=== PATIENT | male | born 1970 | race Caucasian/White ===

== ENCOUNTER → 2017-01-11 | Outpatient (CLI) | payer OTHER | END | disposition home or self-care (01) | LOC: PETCFH 07:45 | PROVIDERS: ATTEND Otolaryngology | DX: R22.1 Localized swelling, mass and lump, neck (principal); K57.30 Diverticulosis of large intestine without perforation or abscess without bleeding | CPT/HCPCS: 78816; A9552 ==

== ENCOUNTER 2017-01-27 08:15 | Observation (INO) | payer OTHER ==
[~2017-01-27] VITALS: Ht 195.6 cm; Wt 141.3 kg
[2017-01-27] MEDS ORDERED: LACTATED RINGERS 1,000 ML IV SCH (08:58)
[2017-01-27 08:59] VITALS: BP 147/79
[2017-01-27] MEDS ORDERED: LIDOCAINE 1%, 2ML SQ PRN (09:00)
[2017-01-27] MEDS ORDERED: PLEASE ENTER HEIGHT AND WEIGHT MC SCH (09:30)
[2017-01-27] MEDS ORDERED: PLEASE ENTER ALLERGIES MC SCH ×2 (09:30)
[2017-01-27] MEDS ORDERED: MIDAZOLAM 1 MG/ML, 2ML ONE (09:34)
[2017-01-27] MEDS ORDERED: FENTANYL PF 100 MCG/2ML ONE ×4 (09:34→12:18)
[2017-01-27] MEDS ORDERED: ONDANSETRON 2MG/ML, 2ML ONE ×2 (09:35)
[2017-01-27] MEDS ORDERED: CEFAZOLIN 1,000 MG ONE ×2 (09:35)
[2017-01-27] MEDS ORDERED: DEXAMETHASONE 4 MG/ML, 1ML ONE ×2 (09:35)
[2017-01-27] MEDS ORDERED: PROPOFOL 10 MG/ML, 20ML ONE (09:35)
[2017-01-27] MEDS ORDERED: SUCCINYLCHOLINE 20 MG/ML, 10ML ONE (09:35)
[2017-01-27] MEDS ORDERED: ROCURONIUM 10 MG/ML ONE (09:35)
[2017-01-27] MEDS ORDERED: EPINEPHRINE 1 MG/ML, 1ML ONE (09:40)
[2017-01-27] MEDS ORDERED: LIDOCAINE/PF 1%, 30ML ONE (09:40)
[2017-01-27] MEDS ORDERED: NEO/BACI/POLY/HC OINT 15GM ONE (09:40)
[2017-01-27] MEDS ORDERED: LIDOCAINE GEL 2%, 5ML ONE (09:45)
[2017-01-27] MEDS ORDERED: PROMETHAZINE 25 MG/ML, 1ML IV PRN (10:30)
[2017-01-27] MEDS ORDERED: ACETAMINOPHEN 325 MG TABLET PO PRN (10:30)
[2017-01-27] MEDS ORDERED: MIDAZOLAM 1 MG/ML, 2ML IV PRN (10:30)
[2017-01-27] MEDS ORDERED: ALBUTEROL SULFATE 2.5 MG/3 ML NPPB PRN (10:30)
[2017-01-27] MEDS ORDERED: ONDANSETRON 2MG/ML, 2ML IVPush PRN ×2 (10:30→14:30)
[2017-01-27] MEDS ORDERED: MEPERIDINE/PF 25MG/0.5ML IVPush PRN (10:30)
[2017-01-27] MEDS ORDERED: LABETALOL 5MG/ML, 20ML IV PRN (10:30)
[2017-01-27] MEDS ORDERED: OXYcodone 5 MG/5 ML ORAL.SOL UDC PO PRN (10:30)
[2017-01-27] MEDS ORDERED: hydrALAzine 20 MG/ML, 1ML IV PRN (10:30)
[2017-01-27] MEDS: FENTANYL PF 100 MCG/2ML IV PRN ×3 (12:12→12:28)
[2017-01-27] MEDS ORDERED: HYDROmorphone 2 MG/ML, 1ML ONE (12:18)
[2017-01-27] MEDS: HYDROmorphone 1 MG/ML, 1ML IV PRN ×4 (12:19→12:51)
[2017-01-27 13:40] VITALS: BP 122/75
[2017-01-27] MEDS ORDERED: HYDROmorphone 1 MG/ML, 1ML ONE (13:53)
[2017-01-27] MEDS ORDERED: HYDROmorphone 2 MG/ML, 1ML IV PRN (14:30)
[2017-01-27] MEDS: LACTATED RINGERS 1,000 ML IV SCH ×2 (14:51→21:39)
[2017-01-27] MEDS: OXYcodone/APAP 5/325MG TABLET PO PRN ×2 (17:39→21:37)
[2017-01-27 18:23] VITALS: BP 129/76
[2017-01-28 00:20] VITALS: BP 112/64
[2017-01-28] MEDS: OXYcodone/APAP 5/325MG TABLET PO PRN ×2 (02:08→06:19)
[2017-01-28 04:33] VITALS: BP 110/67
[2017-01-28] MEDS: LACTATED RINGERS 1,000 ML IV SCH (04:48)
[2017-01-28 08:54] VITALS: BP 104/54
[2017-01-28] MEDS ORDERED: OXYC-307 PO (09:52)
[2017-01-28] MEDS ORDERED: CEPH-368 PO (09:53)
[2017-01-28] MEDS ORDERED: ONDA4TAB10 PO (09:54)
[2017-01-28] MEDS ORDERED: ALPR1TAB2 PO (09:55)
== END 2017-01-28 10:11 | disposition home or self-care (01) ==
LOC: OUT 08:15 → EDSTATUS 10:00 → 4NOR 14:03 → OUT 14:13 → 4NOR 14:14 → DCLOUNGE 01-28 09:49
PROVIDERS: ADMIT Otolaryngology; ATTEND Otolaryngology
DX: C43.4 Malignant melanoma of scalp and neck (principal); R22.1 Localized swelling, mass and lump, neck; R59.0 Localized enlarged lymph nodes
CPT/HCPCS: 38724; 88307; 96374; C1729; G0378; J0171; J0330; J0690; J1100; J1170; J2250; J2405; J2704; J3010; J3490; J7120; 88342; G0461

== ENCOUNTER → 2017-02-03 | Outpatient (CLI) | payer OTHER ==
[~2017-02-03] MED LIST: ALPR1TAB2 PO; CEPH-368 PO; GADOBUTROL 10 MMOL/10 ML PFS ONE; ONDA4TAB10 PO; OXYC-307 PO
== END ==
LOC: RAD 16:13
PROVIDERS: ATTEND Specialist
DX: J32.3 Chronic sphenoidal sinusitis (principal); J32.2 Chronic ethmoidal sinusitis; C43.4 Malignant melanoma of scalp and neck
CPT/HCPCS: 70553; A9585

== ENCOUNTER → 2017-03-03 | Outpatient (CLI) | payer OTHER ==
[~2017-03-03] MED LIST changes: -GADOBUTROL 10 MMOL/10 ML PFS ONE
== END | disposition home or self-care (01) ==
LOC: CFH 07:25
PROVIDERS: ATTEND Specialist
DX: K76.0 Fatty (change of) liver, not elsewhere classified (principal); N28.1 Cyst of kidney, acquired; C43.4 Malignant melanoma of scalp and neck
CPT/HCPCS: 76700

== ENCOUNTER → 2017-03-25 | Outpatient (CLI) | payer OTHER | LOC: CFH 09:16 | PROVIDERS: ATTEND Specialist | DX: J34.89 Other specified disorders of nose and nasal sinuses (principal); C43.4 Malignant melanoma of scalp and neck | CPT/HCPCS: 70486 ==

== ENCOUNTER 2017-04-30 09:40 | Emergency (ER) | payer OTHER ==
[~2017-04-30] VITALS: Ht 195.6 cm; Wt 142.2 kg
[2017-04-30] MEDS ORDERED: DILTIAZEM 125 MG in DEXTROSE 5% 100 ML IV SCH (09:59)
[2017-04-30] MEDS ORDERED: ASPIRIN 81 MG TABLET CHEW PO ONE (10:00)
[2017-04-30] MEDS ORDERED: DILTIAZEM 5 MG/ML, 5ML IV ONE (10:00)
[2017-04-30] MEDS ORDERED: SODIUM CHLORIDE FLUSH 10ML SYR IVF ONE (10:00)
[2017-04-30] MEDS ORDERED: DILTIAZEM 5 MG/ML, 5ML ONE (10:07)
[2017-04-30] MEDS ORDERED: ASPIRIN 81 MG TABLET CHEW ONE (10:08)
[2017-04-30] MEDS ORDERED: ETOMIDATE 20 MG/10 ML ONE (10:30)
[2017-04-30] MEDS ORDERED: FENTANYL PF 100 MCG/2ML ONE (10:47)
[2017-04-30 10:50] LABS: BASOPHILS # (AUTO) 0.07 x10^3/uL (0-0.1); BASOPHILS % (AUTO) 1 % (0-1); EOSINOPHILS # (AUTO) 0.14 x10^3/uL (0-0.4); EOSINOPHILS % (AUTO) 2 % (1-7); LYMPHOCYTES # (AUTO) 2.45 x10^3/uL (1-3.4); LYMPHOCYTES % (AUTO) 27 % (22-44); MD NO; MEAN CORPUSCULAR HEMOGLOBIN 30.6 pg (27.5-34.5); MEAN CORPUSCULAR HGB CONC 33.8 g/dL (33.2-36.2); MEAN CORPUSCULAR VOLUME 90.4 fL (81-97); MEAN PLATELET VOLUME 7.9 fL (7.4-10.4); MONOCYTES # (AUTO) 0.74 x10^3/uL (0.2-0.8); MONOCYTES % (AUTO) 8 % (2-9); NEUTROPHILS # (AUTO) 5.55 x10^3/uL (1.8-6.8); NEUTROPHILS % (AUTO) 62 % (42-75); PLATELET COUNT 329 x10^3/uL (130-400); RED BLOOD COUNT 4.63 x10^6/uL (4.38-5.82)
[2017-04-30 10:59] LABS: ANION GAP 7 mmol/L (5-15); CALCIUM 8.8 mg/dL (8.5-10.1); CHLORIDE 105 mmol/L (98-107); CREATININE 0.85 mg/dL (0.7-1.3)
[2017-04-30] MEDS ORDERED: FENTANYL PF 100 MCG/2ML IV ONE (11:00)
[2017-04-30 11:02] LABS: TROPONIN I < 0.015 ng/mL (0.000-0.045)
[2017-04-30 11:22] VITALS: BP 119/74
[2017-04-30] MEDS ORDERED: ETOMIDATE 20 MG/10 ML IVPush ONE (11:30)
== END 2017-04-30 12:04 | disposition home or self-care (01) ==
LOC: ED 11:38
DX: I48.91 Unspecified atrial fibrillation (principal)
CPT/HCPCS: 36415; 71045; 80048; 82040; 83880; 84484; 85025; 92960; 93005; 96374

== ENCOUNTER → 2017-05-13 | Outpatient (CLI) | payer OTHER ==
[~2017-05-13] MED LIST changes: +METO25TA91 PO; +NIVO100V IV; +RIVA1TAB PO
== END | disposition home or self-care (01) ==
LOC: CFH 15:53
PROVIDERS: ATTEND Specialist
DX: I10 Essential (primary) hypertension (principal); I48.91 Unspecified atrial fibrillation; I48.92 Unspecified atrial flutter; C43.4 Malignant melanoma of scalp and neck; F17.200 Nicotine dependence, unspecified, uncomplicated; Z79.01 Long term (current) use of anticoagulants
CPT/HCPCS: 93306

== ENCOUNTER → 2017-06-04 | Outpatient (CLI) | payer OTHER ==
[~2017-06-04] MED LIST changes: +OMNIPAQUE 350 MG/ML, 100ML BOTTLE ONE
== END | disposition home or self-care (01) ==
LOC: RAD 10:36
PROVIDERS: ATTEND Specialist
DX: R91.1 Solitary pulmonary nodule (principal); Z85.820 Personal history of malignant melanoma of skin
CPT/HCPCS: 71275; Q9967

== ENCOUNTER 2017-06-08 11:53 | Emergency (ER) | payer OTHER ==
[~2017-06-08] VITALS: Ht 195.6 cm; Wt 141.0 kg
[~2017-06-08 11:53] MED LIST changes: -OMNIPAQUE 350 MG/ML, 100ML BOTTLE ONE
[2017-06-08 13:29] LABS: BASOPHILS # (AUTO) 0.03 x10^3/uL (0-0.1); BASOPHILS % (AUTO) 1 % (0-1); EOSINOPHILS # (AUTO) 0.38 x10^3/uL (0-0.4); EOSINOPHILS % (AUTO) 5 % (1-7); LYMPHOCYTES # (AUTO) 1.61 x10^3/uL (1-3.4); LYMPHOCYTES % (AUTO) 21 % (22-44); MD NO; MEAN CORPUSCULAR HEMOGLOBIN 30.4 pg (27.5-34.5); MEAN CORPUSCULAR HGB CONC 34.3 g/dL (33.2-36.2); MEAN CORPUSCULAR VOLUME 88.6 fL (81-97); MEAN PLATELET VOLUME 7.9 fL (7.4-10.4); MONOCYTES # (AUTO) 0.72 x10^3/uL (0.2-0.8); MONOCYTES % (AUTO) 9 % (2-9); NEUTROPHILS # (AUTO) 5.06 x10^3/uL (1.8-6.8); NEUTROPHILS % (AUTO) 65 % (42-75); PLATELET COUNT 261 x10^3/uL (130-400); RED BLOOD COUNT 5.25 x10^6/uL (4.38-5.82); RED CELL DISTRIBUTION WIDTH 13.7 % (9.4-14.8)
[2017-06-08 13:40] LABS: ALANINE AMINOTRANSFERASE 54 U/L (12-78); ALBUMIN 4.3 g/dL (3.4-5.0); ANION GAP 9 mmol/L (5-15); CALCIUM 9.2 mg/dL (8.5-10.1); CHLORIDE 105 mmol/L (98-107); CREATININE 0.79 mg/dL (0.7-1.3)
[2017-06-08 13:44] LABS: MICROSCOPIC NOT IND
[2017-06-08 13:45] LABS: ALKALINE PHOSPHATASE 100 U/L (45-117); BILIRUBIN,TOTAL 0.5 mg/dL (0.2-1.0); TOTAL PROTEIN 7.8 g/dL (6.4-8.2)
[2017-06-08 13:57] LABS: CULTURE INDICATED? NO
[2017-06-08 15:37] VITALS: BP 111/73
== END 2017-06-08 15:40 | disposition home or self-care (01) ==
LOC: ED 13:42
DX: J02.8 Acute pharyngitis due to other specified organisms (principal); B97.89 Other viral agents as the cause of diseases classified elsewhere; I48.91 Unspecified atrial fibrillation; Z87.891 Personal history of nicotine dependence
CPT/HCPCS: 36415; 71046; 80053; 81003; 82533; 83605; 83880; 84145; 85025; 87040; 87081; 87880; 99285

== ENCOUNTER → 2017-08-20 | Outpatient (CLI) | payer OTHER ==
[~2017-08-20] MED LIST changes: +GADOBUTROL 10 MMOL/10 ML VIAL ONE
== END | disposition home or self-care (01) ==
LOC: CFH 13:46
PROVIDERS: ATTEND Specialist
DX: C76.0 Malignant neoplasm of head, face and neck (principal); C43.9 Malignant melanoma of skin, unspecified; E23.6 Other disorders of pituitary gland; R42 Dizziness and giddiness; H53.8 Other visual disturbances
CPT/HCPCS: 70553; A9585

== ENCOUNTER → 2017-09-24 | Outpatient (CLI) | payer OTHER ==
[~2017-09-24] MED LIST changes: -GADOBUTROL 10 MMOL/10 ML VIAL ONE
== END | disposition home or self-care (01) ==
LOC: PETCFH 12:47
PROVIDERS: ATTEND Specialist
DX: C43.4 Malignant melanoma of scalp and neck (principal); R91.1 Solitary pulmonary nodule
CPT/HCPCS: 78816; A9552

== ENCOUNTER 2017-12-20 05:44 | Emergency (ER) | payer OTHER ==
[~2017-12-20] VITALS: Ht 195.6 cm; Wt 138.3 kg
[2017-12-20] MEDS ORDERED: SODIUM CHLORIDE 0.9% 1,000 ML IV ONE (06:06)
[2017-12-20 06:25] LABS: BASOPHILS % (AUTO) 2 % (0-1); EOSINOPHILS # (AUTO) 0.31 x10^3/uL (0-0.4); EOSINOPHILS % (AUTO) 5 % (1-7); LYMPHOCYTES # (AUTO) 1.82 x10^3/uL (1-3.4); LYMPHOCYTES % (AUTO) 30 % (22-44); MD NO; MEAN CORPUSCULAR HEMOGLOBIN 29.9 pg (27.5-34.5); MEAN CORPUSCULAR HGB CONC 33.4 g/dL (33.2-36.2); MEAN CORPUSCULAR VOLUME 89.6 fL (81-97); MEAN PLATELET VOLUME 8.3 fL (7.4-10.4); MONOCYTES # (AUTO) 0.81 x10^3/uL (0.2-0.8); MONOCYTES % (AUTO) 14 % (2-9); NEUTROPHILS # (AUTO) 2.97 x10^3/uL (1.8-6.8); NEUTROPHILS % (AUTO) 49 % (42-75); PLATELET COUNT 267 x10^3/uL (130-400); RED BLOOD COUNT 5.39 x10^6/uL (4.38-5.82)
[2017-12-20] MEDS ORDERED: ASPIRIN 81 MG TABLET CHEW ONE (06:29)
[2017-12-20] MEDS ORDERED: SODIUM CHLORIDE 0.9% 1,000ML IVBOLUS ONE (06:30)
[2017-12-20] MEDS ORDERED: ASPIRIN 81 MG TABLET CHEW PO ONE (06:30)
[2017-12-20 06:38] LABS: ALBUMIN 3.6 g/dL (3.4-5.0); ANION GAP 6 mmol/L (5-15); CALCIUM 9.1 mg/dL (8.5-10.1); CHLORIDE 107 mmol/L (98-107); CREATININE 1.01 mg/dL (0.7-1.3)
[2017-12-20 06:42] LABS: TROPONIN I < 0.015 ng/mL (0.000-0.045)
[2017-12-20] MEDS ORDERED: HYDR-3307 PO (06:42)
[2017-12-20] MEDS ORDERED: LEVO13CA2 PO (06:42)
[2017-12-20] MEDS ORDERED: RIZA10TA20 PO (06:42)
[2017-12-20] MEDS ORDERED: PROP20TA PO (06:42)
[2017-12-20] MEDS ORDERED: OMNIPAQUE 350 MG/ML, 100ML BOTTLE ONE (06:58)
[2017-12-20] MEDS ORDERED: ONDANSETRON ODT 4 MG PO ONE (07:00)
[2017-12-20] MEDS ORDERED: MORPHINE SULFATE 4 MG/ML, 1ML IVPush PRN (07:00)
[2017-12-20] MEDS ORDERED: TESTOSTERONE IM/IV (07:06)
[2017-12-20] MEDS ORDERED: ONDANSETRON ODT 4 MG ONE (07:08)
[2017-12-20] MEDS ORDERED: MORPHINE SULFATE 4 MG/ML, 1ML ONE (07:09)
[2017-12-20 08:02] VITALS: BP 109/65
== END 2017-12-20 08:07 | disposition home or self-care (01) ==
LOC: ED 06:36
DX: R06.00 Dyspnea, unspecified (principal); K52.9 Noninfective gastroenteritis and colitis, unspecified; I48.91 Unspecified atrial fibrillation
CPT/HCPCS: 36415; 71045; 71275; 80048; 82040; 84484; 85025; 93005; 96361; 96374; 99285; J7030; Q0162; Q9967

== ENCOUNTER 2018-01-12 03:01 | Emergency (ER) | payer OTHER ==
[~2018-01-12] VITALS: Ht 195.6 cm; Wt 128.0 kg
[~2018-01-12 03:01] MED LIST changes: +HYDR-3307 PO; +LEVO13CA2 PO; +PROP20TA PO; +RIZA10TA20 PO; +TESTOSTERONE IM/IV
[2018-01-12] MEDS ORDERED: DIAZEPAM 5 MG TABLET ONE (03:50)
[2018-01-12 04:00] LABS: BASOPHILS # (AUTO) 0.03 x10^3/uL (0-0.1); BASOPHILS % (AUTO) 1 % (0-1); EOSINOPHILS # (AUTO) 0.36 x10^3/uL (0-0.4); EOSINOPHILS % (AUTO) 7 % (1-7); LYMPHOCYTES # (AUTO) 1.76 x10^3/uL (1-3.4); LYMPHOCYTES % (AUTO) 36 % (22-44); MD NO; MEAN CORPUSCULAR HGB CONC 33.1 g/dL (33.2-36.2); MEAN CORPUSCULAR VOLUME 87.8 fL (81-97); MONOCYTES # (AUTO) 0.79 x10^3/uL (0.2-0.8); MONOCYTES % (AUTO) 16 % (2-9); NEUTROPHILS # (AUTO) 2.02 x10^3/uL (1.8-6.8); NEUTROPHILS % (AUTO) 41 % (42-75); PLATELET COUNT 252 x10^3/uL (130-400); RED BLOOD COUNT 5.02 x10^6/uL (4.38-5.82); RED CELL DISTRIBUTION WIDTH 13.9 % (9.4-14.8)
[2018-01-12] MEDS ORDERED: DIAZEPAM 5 MG TABLET PO ONE (04:00)
[2018-01-12] MEDS ORDERED: SODIUM CHLORIDE FLUSH 10ML SYR IVF ONE (04:00)
[2018-01-12 04:12] LABS: ALBUMIN 3.6 g/dL (3.4-5.0); ANION GAP 6 mmol/L (5-15); CALCIUM 9.1 mg/dL (8.5-10.1); CHLORIDE 106 mmol/L (98-107)
[2018-01-12 04:13] LABS: CREATININE 0.89 mg/dL (0.7-1.3)
[2018-01-12] MEDS ORDERED: HYDROmorphone 2 MG/ML, 1ML ONE (04:57)
[2018-01-12] MEDS ORDERED: HYDROmorphone 2 MG/ML, 1ML IV ONE (05:00)
[2018-01-12] MEDS ORDERED: HYDROmorphone 1 MG/ML, 1ML IV ONE (05:00)
[2018-01-12 05:35] VITALS: BP 109/61
[2018-01-12] MEDS ORDERED: OMNIPAQUE 350 MG/ML, 100ML BOTTLE ONE (06:39)
== END 2018-01-12 05:44 | disposition home or self-care (01) ==
LOC: ED 03:32
DX: M54.6 Pain in thoracic spine (principal)
CPT/HCPCS: 36415; 72129; 80048; 82040; 85025; 96374; 99285; J1170; Q9967

== ENCOUNTER 2018-01-16 12:18 | Emergency (ER) | payer OTHER ==
[~2018-01-16] VITALS: Ht 195.6 cm; Wt 128.0 kg
[2018-01-16] MEDS ORDERED: ONDANSETRON 2MG/ML, 2ML IVPush ONE (13:30)
[2018-01-16] MEDS ORDERED: SODIUM CHLORIDE 0.9% 1,000ML IVBOLUS ONE (13:30)
[2018-01-16] MEDS ORDERED: SODIUM CHLORIDE FLUSH 10ML SYR IVF ONE (13:30)
[2018-01-16] MEDS ORDERED: ONDANSETRON 2MG/ML, 2ML ONE (13:40)
[2018-01-16 14:19] LABS: BASOPHILS # (AUTO) 0.02 x10^3/uL (0-0.1); BASOPHILS % (AUTO) 0 % (0-1); EOSINOPHILS # (AUTO) 0.32 x10^3/uL (0-0.4); EOSINOPHILS % (AUTO) 6 % (1-7); LYMPHOCYTES # (AUTO) 1.64 x10^3/uL (1-3.4); LYMPHOCYTES % (AUTO) 30 % (22-44); MD NO; MEAN CORPUSCULAR HGB CONC 33.9 g/dL (33.2-36.2); MEAN CORPUSCULAR VOLUME 88.7 fL (81-97); MEAN PLATELET VOLUME 8.3 fL (7.4-10.4); MONOCYTES % (AUTO) 14 % (2-9); NEUTROPHILS # (AUTO) 2.78 x10^3/uL (1.8-6.8); NEUTROPHILS % (AUTO) 50 % (42-75); PLATELET COUNT 227 x10^3/uL (130-400); RED BLOOD COUNT 5.51 x10^6/uL (4.38-5.82); RED CELL DISTRIBUTION WIDTH 14.2 % (9.4-14.8)
[2018-01-16 14:28] LABS: ALANINE AMINOTRANSFERASE 32 U/L (12-78); ALBUMIN 3.9 g/dL (3.4-5.0); ANION GAP 11 mmol/L (5-15); CALCIUM 9.4 mg/dL (8.5-10.1); CHLORIDE 102 mmol/L (98-107)
[2018-01-16 14:33] LABS: ALKALINE PHOSPHATASE 54 U/L (45-117); BILIRUBIN,TOTAL 0.8 mg/dL (0.2-1.0); TOTAL PROTEIN 7.3 g/dL (6.4-8.2); TROPONIN I < 0.015 ng/mL (0.000-0.045)
[2018-01-16 15:31] VITALS: BP 125/78
[2018-01-16 15:35] LABS: FREE T4 (FREE THYROXINE) 0.46 ng/dL (0.76-1.46); THYROID STIMULATING HORMONE 34.1 mIU/L (0.358-3.740)
== END 2018-01-16 16:35 | disposition home or self-care (01) ==
LOC: ED 16:30
DX: E03.9 Hypothyroidism, unspecified (principal); I48.91 Unspecified atrial fibrillation
CPT/HCPCS: 36415; 71046; 80053; 84439; 84443; 84484; 85025; 93005; 96374; 99285; J2405; J7030

== ENCOUNTER → 2018-01-20 | Outpatient (CLI) | payer OTHER | END | disposition home or self-care (01) | LOC: PETCFH 08:25 | PROVIDERS: ATTEND Specialist | DX: R91.1 Solitary pulmonary nodule (principal); C43.4 Malignant melanoma of scalp and neck | CPT/HCPCS: 78816; A9552 ==

== ENCOUNTER 2018-05-14 07:14 | Emergency (ER) | payer OTHER, MEDICAID ==
[~2018-05-14] VITALS: Ht 195.6 cm; Wt 138.2 kg
--- NOTE | 2018-05-14 07:24 | NUR ---
PT REFUSED WC
--- NOTE | 2018-05-14 07:55 | NUR ---
PT. IS A & O X 4 WITH C/O NOT FEELING WELL AND DANIELS PAIN. 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 PT. 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 PT. IS PINK, WARM AND DRY. LUNGS ARE CTA. MM ARE MOIST. PULSES +2 THROUGHOUT. PT. HAS THE CALL LIGHT IN PLACE.
[2018-05-14 08:05] LABS: BASOPHILS # (AUTO) 0.04 x10^3/uL (0-0.1); BASOPHILS % (AUTO) 1 % (0-1); EOSINOPHILS # (AUTO) 0.22 x10^3/uL (0-0.4); EOSINOPHILS % (AUTO) 6 % (1-7); LYMPHOCYTES # (AUTO) 1.82 x10^3/uL (1-3.4); LYMPHOCYTES % (AUTO) 45 % (22-44); MD NO; MEAN CORPUSCULAR HEMOGLOBIN 30.2 pg (27.5-34.5); MEAN CORPUSCULAR HGB CONC 33.7 g/dL (33.2-36.2); MEAN CORPUSCULAR VOLUME 89.8 fL (81-97); MEAN PLATELET VOLUME 7.2 fL (7.4-10.4); MONOCYTES # (AUTO) 0.51 x10^3/uL (0.2-0.8); MONOCYTES % (AUTO) 13 % (2-9); NEUTROPHILS # (AUTO) 1.42 x10^3/uL (1.8-6.8); NEUTROPHILS % (AUTO) 36 % (42-75); PLATELET COUNT 217 x10^3/uL (130-400); RED BLOOD COUNT 4.34 x10^6/uL (4.38-5.82); RED CELL DISTRIBUTION WIDTH 15.3 % (9.4-14.8)
[2018-05-14 08:17] LABS: ANION GAP 5 mmol/L (5-15); CALCIUM 8.4 mg/dL (8.5-10.1); CHLORIDE 108 mmol/L (98-107); CREATININE 0.82 mg/dL (0.7-1.3)
[2018-05-14 08:26] LABS: T4 (THYROXINE) 8.5 mcg/dL (4.5-12.1)
--- NOTE | 2018-05-14 09:25 | NUR ---
PT. IS RESTING WITHOUT CONCERNS. VSS. PT. REMAINS MONITORED.
[2018-05-14] MEDS ORDERED: HYDROCORTISONE 100 MG INJ. IVPush ONE (11:00)
[2018-05-14] MEDS ORDERED: SODIUM CHLORIDE FLUSH 10ML SYR IVF ONE (11:00)
[2018-05-14] MEDS ORDERED: RIZATRIPTAN 10MG TABLET PO PRN (12:00)
--- NOTE | 2018-05-14 12:05 | NUR ---
PT. REMAINS MONITORED WITH STABLE VITALS. PT. WAS MEDICATED ORDERED. PT. IS DRINKING PO FLUIDS.
--- NOTE | 2018-05-14 13:08 | NUR ---
PT. WAS GIVEN DISCHARGE INSTRUCTIONS AND SCRIPTS WITH UNDERSTANDING VERBALIZED ALONG WITH WILLINGNESS TO COMPLY. PT.'S IV WAS DCD', CATH TIP INTACT. PRESSURE HELD WITH HEMOSTASIS ACHIEVED. PT. WAS AMBULATORY WITH A STEADY GAIT TO THE DISCHARGE DESK.
[2018-05-14 13:10] VITALS: BP 115/75
== END 2018-05-14 13:13 | disposition home or self-care (01) ==
LOC: ED 09:16
DX: E27.1 Primary adrenocortical insufficiency (principal); E03.9 Hypothyroidism, unspecified; I48.91 Unspecified atrial fibrillation; Z87.891 Personal history of nicotine dependence
CPT/HCPCS: 36415; 80048; 82040; 82533; 84436; 84443; 85025; 93005; 96374; 99284; J1720

== ENCOUNTER 2018-10-19 15:34 | Inpatient (IN) | payer OTHER, MEDICAID ==
[~2018-10-19] VITALS: Ht 195.6 cm; Wt 140.0 kg
[~2018-10-19 15:34] MED LIST changes: -HYDR-3307 PO; +HYDR-36 PO
--- NOTE | 2018-10-19 16:21 | NUR ---
COUGH WITH FATIGUE AND CHILLS STARTED TWO WEEKS AGO
[2018-10-19] MEDS ORDERED: ALBUTEROL/IPRATROPIUM 2.5MG/0.5MG, 3 ML ONE (16:27)
[2018-10-19] MEDS ORDERED: ALBUTEROL/IPRATROPIUM 2.5MG/0.5MG, 3 ML NPPB ONE (16:30)
--- NOTE | 2018-10-19 16:30 | NUR ---
RT AT BEDSIDE
[2018-10-19 16:39] LABS: BASOPHILS # (AUTO) 0.04 x10^3/uL (0-0.1); BASOPHILS % (AUTO) 1 % (0-1); EOSINOPHILS # (AUTO) 0.33 x10^3/uL (0-0.4); EOSINOPHILS % (AUTO) 6 % (1-7); LYMPHOCYTES # (AUTO) 1.53 x10^3/uL (1-3.4); LYMPHOCYTES % (AUTO) 26 % (22-44); MD NO; MEAN CORPUSCULAR HEMOGLOBIN 31.2 pg (27.5-34.5); MEAN CORPUSCULAR HGB CONC 33.3 g/dL (33.2-36.2); MEAN CORPUSCULAR VOLUME 93.7 fL (81-97); MEAN PLATELET VOLUME 7.4 fL (7.4-10.4); MONOCYTES % (AUTO) 10 % (2-9); NEUTROPHILS # (AUTO) 3.35 x10^3/uL (1.8-6.8); NEUTROPHILS % (AUTO) 57 % (42-75); PLATELET COUNT 237 x10^3/uL (130-400); RED BLOOD COUNT 4.44 x10^6/uL (4.38-5.82); RED CELL DISTRIBUTION WIDTH 14.6 % (9.4-14.8)
[2018-10-19 16:50] LABS: ALANINE AMINOTRANSFERASE 32 U/L (12-78); ALBUMIN 3.9 g/dL (3.4-5.0); ANION GAP 4 mmol/L (5-15); CALCIUM 8.8 mg/dL (8.5-10.1); CHLORIDE 110 mmol/L (98-107); CREATININE 0.78 mg/dL (0.7-1.3)
[2018-10-19] MEDS ORDERED: BACL20TA PO (16:54)
[2018-10-19] MEDS ORDERED: PROP20TA PO (16:54)
[2018-10-19] MEDS ORDERED: LEVO137T3 PO (16:54)
[2018-10-19 16:55] LABS: ALKALINE PHOSPHATASE 70 U/L (45-117); TOTAL PROTEIN 7.1 g/dL (6.4-8.2); TROPONIN I < 0.015 ng/mL (0.000-0.045)
[2018-10-19] MEDS ORDERED: ALBU18HF INH (16:58)
[2018-10-19] MEDS ORDERED: HYDROCORTISONE (16:58)
--- NOTE | 2018-10-19 17:30 | NUR ---
COUGHING DECREASED SINCE BREATHING TX. AWAITING RE-EVAL
--- NOTE | 2018-10-19 18:45 | NUR ---
IV STARTED FOR CTA. CONTINUE TO MONITOR
[2018-10-19] MEDS ORDERED: HYDROCORTISONE 100 MG INJ. IVPush ONE (19:00)
--- NOTE | 2018-10-19 19:06 | NUR ---
REPORT TO MARICRUZ VALDIVIA
[2018-10-19] MEDS ORDERED: HYDROCORTISONE 100 MG INJ. ONE (19:11)
[2018-10-19] MEDS ORDERED: OMNIPAQUE 350 MG/ML, 100ML BOTTLE ONE (19:13)
--- NOTE | 2018-10-19 19:16 | NUR ---
Bedside report recieved, back from CT. at bedside. Medicated per MD orders w/ IV solucortef, vitals stable, waiting for results. Pt denies pain.
--- NOTE | 2018-10-19 20:04 | NUR ---
Report called to Sheri VALDIVIA. Pt to transfer to room 478, at bedside and updated of POC. Vitals remain stable, pain resolved. Meal tray ordered and not yet available.
[2018-10-19] MEDS ORDERED: BISACODYL 10 MG SUPP PR PRN (21:30)
[2018-10-19] MEDS ORDERED: ONDANSETRON ODT 4 MG PO PRN (21:30)
[2018-10-19] MEDS: PROPRANOLOL 20 MG TABLET PO SCH (21:30)
[2018-10-19] MEDS ORDERED: POLYETHYLENE GLYCOL 17 GM PACKET PO PRN (21:30)
[2018-10-19] MEDS ORDERED: ALBUTEROL SULFATE 2.5 MG/3 ML NPPB PRN (21:30)
[2018-10-19] MEDS ORDERED: ACETAMINOPHEN 325 MG TABLET PO PRN (21:30)
[2018-10-19] MEDS ORDERED: BACLOFEN 10 MG TABLET PO PRN (21:30)
[2018-10-19] MEDS ORDERED: PROPRANOLOL 40 MG TABLET ONE (21:47)
[2018-10-19] MEDS: HEPARIN 5,000 UNITS/ML, 1ML SQ SCH (21:50)
[2018-10-19] MEDS: SODIUM CHLORIDE FLUSH 10ML SYR IVF SCH (21:51)
[2018-10-19 22:28] LABS: HCT (SEDRATE) 41.6 % (39.2-51.8)
[2018-10-20 02:58] VITALS: BP 121/73
[2018-10-20 05:35] LABS: BASOPHILS # (AUTO) 0.07 x10^3/uL (0-0.1); BASOPHILS % (AUTO) 1 % (0-1); EOSINOPHILS # (AUTO) 0.37 x10^3/uL (0-0.4); EOSINOPHILS % (AUTO) 7 % (1-7); LYMPHOCYTES # (AUTO) 1.79 x10^3/uL (1-3.4); LYMPHOCYTES % (AUTO) 33 % (22-44); MD NO; MEAN CORPUSCULAR HEMOGLOBIN 30.4 pg (27.5-34.5); MEAN CORPUSCULAR HGB CONC 32.9 g/dL (33.2-36.2); MEAN CORPUSCULAR VOLUME 92.4 fL (81-97); MEAN PLATELET VOLUME 7.4 fL (7.4-10.4); MONOCYTES # (AUTO) 0.69 x10^3/uL (0.2-0.8); MONOCYTES % (AUTO) 13 % (2-9); NEUTROPHILS # (AUTO) 2.56 x10^3/uL (1.8-6.8); NEUTROPHILS % (AUTO) 47 % (42-75); PLATELET COUNT 224 x10^3/uL (130-400); RED BLOOD COUNT 4.33 x10^6/uL (4.38-5.82); RED CELL DISTRIBUTION WIDTH 14.4 % (9.4-14.8)
[2018-10-20 06:01] LABS: CHLORIDE 107 mmol/L (98-107)
[2018-10-20] MEDS: HEPARIN 5,000 UNITS/ML, 1ML SQ SCH ×3 (06:08→22:08)
[2018-10-20 06:09] LABS: ALANINE AMINOTRANSFERASE 30 U/L (12-78); ALBUMIN 3.6 g/dL (3.4-5.0); ALKALINE PHOSPHATASE 68 U/L (45-117); ANION GAP 7 mmol/L (5-15); BILIRUBIN,TOTAL 0.5 mg/dL (0.2-1.0); CALCIUM 8.9 mg/dL (8.5-10.1); CREATININE 0.77 mg/dL (0.7-1.3)
[2018-10-20] MEDS: LEVOTHYROXINE 137 MCG TABLET PO SCH (06:09)
[2018-10-20 08:12] VITALS: BP 126/79
[2018-10-20] MEDS ORDERED: PROPRANOLOL 40 MG TABLET ONE (08:23)
[2018-10-20] MEDS: PROPRANOLOL 20 MG TABLET PO SCH (08:37)
[2018-10-20] MEDS: SENNA/DOCUSATE TABLET PO SCH (08:39)
[2018-10-20] MEDS: SODIUM CHLORIDE FLUSH 10ML SYR IVF SCH ×2 (08:39→22:09)
[2018-10-20] MEDS ORDERED: HYDR-3059 PO ×2 (08:52)
[2018-10-20] MEDS ORDERED: BACL-19 PO (08:52)
[2018-10-20] MEDS ORDERED: PROP10TA16 PO (08:52)
[2018-10-20] MEDS ORDERED: DULO30CA2 PO (08:52)
[2018-10-20] MEDS ORDERED: AMOX1TAB12 PO (08:52)
[2018-10-20] MEDS ORDERED: ALPR0.5T7 PO (08:52)
[2018-10-20] MEDS ORDERED: BACLOFEN 10 MG TABLET PO PRN (09:00)
[2018-10-20] MEDS: PROPRANOLOL 10 MG TABLET PO SCH ×2 (09:46→22:09)
[2018-10-20] MEDS: DULOXETINE 30 MG CAPSULE.DR PO SCH (09:47)
[2018-10-20] MEDS: HYDROCORTISONE 10 MG TABLET PO SCH ×2 (09:47→22:09)
[2018-10-20] MEDS: HYDROcodone/APAP 10/325 MG TABLET PO PRN ×2 (09:49→15:21)
[2018-10-20 14:12] VITALS: BP 117/77
[2018-10-20] MEDS: ALBUTEROL SULFATE 2.5 MG/3 ML NPPB SCH ×2 (14:28→21:04)
[2018-10-20] MEDS: GUAIFENESIN/DM 200-20MG, 10ML UDC PO PRN (15:20)
[2018-10-20] MEDS: methylPREDNISolone SOD SUCC 125 MG/2 ML IVPush SCH ×2 (15:21→22:08)
[2018-10-20] MEDS: RIZATRIPTAN 10MG TABLET PO PRN (15:47)
[2018-10-20 19:38] VITALS: BP 122/78
[2018-10-20] MEDS ORDERED: DIPHENHYDRAMINE 50 MG CAPSULE PO ONE (21:00)
[2018-10-21 02:20] VITALS: BP 127/79
[2018-10-21] MEDS: methylPREDNISolone SOD SUCC 125 MG/2 ML IVPush SCH ×4 (03:31→21:03)
[2018-10-21] MEDS: LEVOTHYROXINE 137 MCG TABLET PO SCH (06:33)
[2018-10-21] MEDS: HEPARIN 5,000 UNITS/ML, 1ML SQ SCH ×3 (06:33→21:04)
[2018-10-21] MEDS: RIZATRIPTAN 10MG TABLET PO PRN ×2 (06:37→14:31)
[2018-10-21 07:57] VITALS: BP 133/88
[2018-10-21] MEDS: SODIUM CHLORIDE FLUSH 10ML SYR IVF SCH ×2 (08:50→21:04)
[2018-10-21] MEDS: HYDROCORTISONE 10 MG TABLET PO SCH ×2 (08:52→21:03)
[2018-10-21] MEDS: DULOXETINE 30 MG CAPSULE.DR PO SCH (08:53)
[2018-10-21] MEDS: PROPRANOLOL 10 MG TABLET PO SCH ×2 (08:53→21:04)
[2018-10-21] MEDS: HYDROcodone/APAP 10/325 MG TABLET PO PRN ×2 (08:53→16:07)
[2018-10-21] MEDS: SENNA/DOCUSATE TABLET PO SCH ×2 (08:54→21:34)
[2018-10-21] MEDS: ALBUTEROL SULFATE 2.5 MG/3 ML NPPB SCH ×3 (09:17→20:52)
[2018-10-21] MEDS ORDERED: TEST200V3 IM (11:52)
[2018-10-21] MEDS ORDERED: TESTOSTERONE CYPIONATE 200 MG/ML IM ONE ×2 (13:00→13:30)
[2018-10-21 14:16] VITALS: BP 129/80
[2018-10-21 18:35] VITALS: BP 103/76
[2018-10-21] MEDS: GUAIFENESIN/DM 200-20MG, 10ML UDC PO PRN (21:13)
[2018-10-21] MEDS ORDERED: DIPHENHYDRAMINE 50 MG CAPSULE PO PRN (21:30)
[2018-10-22] MEDS: methylPREDNISolone SOD SUCC 125 MG/2 ML IVPush SCH ×2 (03:02→09:06)
[2018-10-22 04:15] VITALS: BP 122/66
[2018-10-22] MEDS: HEPARIN 5,000 UNITS/ML, 1ML SQ SCH (06:37)
[2018-10-22] MEDS: LEVOTHYROXINE 137 MCG TABLET PO SCH (06:38)
[2018-10-22] MEDS: ALBUTEROL SULFATE 2.5 MG/3 ML NPPB SCH (07:25)
[2018-10-22] MEDS ORDERED: ALBU2.5V NPPB (08:22)
[2018-10-22] MEDS ORDERED: METH4TAB2 PO (08:22)
[2018-10-22 08:55] VITALS: BP 137/81
[2018-10-22] MEDS: SODIUM CHLORIDE FLUSH 10ML SYR IVF SCH (09:06)
[2018-10-22] MEDS: DULOXETINE 30 MG CAPSULE.DR PO SCH (09:08)
[2018-10-22] MEDS: HYDROCORTISONE 10 MG TABLET PO SCH (09:08)
[2018-10-22] MEDS: PROPRANOLOL 10 MG TABLET PO SCH (09:09)
[2018-10-22] MEDS: HYDROcodone/APAP 10/325 MG TABLET PO PRN (09:14)
[2018-10-22 12:02] VITALS: BP 130/78
== END 2018-10-22 12:45 | disposition home or self-care (01) | DRG 189 ==
LOC: ED 17:32 → EDIP 19:41 → 4NOR 20:13 → DCLOUNGE 10-22 12:34
PROVIDERS: ADMIT Family Medicine; ATTEND Family Medicine
DX: J96.01 Acute respiratory failure with hypoxia (principal); J45.901 Unspecified asthma with (acute) exacerbation; D68.69 Other thrombophilia; E27.1 Primary adrenocortical insufficiency; E03.9 Hypothyroidism, unspecified; I48.91 Unspecified atrial fibrillation; Z83.3 Family history of diabetes mellitus; Z85.820 Personal history of malignant melanoma of skin; Z87.09 Personal history of other diseases of the respiratory system; Z87.891 Personal history of nicotine dependence; Z91.030 Bee allergy status
CPT/HCPCS: 36415; 84145; 99285; J7613; J7620; 71045; 71275; 80053; 83880; 84484; 85025; 85651; 93005; 94640; 96374; G0378; J1644; Q9967; J1720; J2930

== ENCOUNTER 2019-02-20 14:53 | Outpatient (CLI) | payer OTHER, MEDICAID ==
[~2019-02-20 14:53] MED LIST changes: +ALBU18HF INH; +ALBU2.5V NPPB; +ALPR0.5T7 PO; +AMOX1TAB12 PO; +BACL-19 PO; +BACL20TA PO; +DULO30CA2 PO; +HYDR-3059 PO; +HYDROCORTISONE; +LEVO137T3 PO; +METH4TAB2 PO; +PROP10TA16 PO; +TEST200V3 IM
== END 2019-02-20 23:59 | disposition home or self-care (01) ==
LOC: CARD 14:53
PROVIDERS: ATTEND Internal Medicine
DX: J45.909 Unspecified asthma, uncomplicated (principal); G47.33 Obstructive sleep apnea (adult) (pediatric); E27.1 Primary adrenocortical insufficiency; E03.9 Hypothyroidism, unspecified; Z87.891 Personal history of nicotine dependence; Z85.828 Personal history of other malignant neoplasm of skin
CPT/HCPCS: 94060; 94726; 94729

== ENCOUNTER 2019-05-04 12:54 | Emergency (ER) | payer BC, MEDICAID, OTHER ==
[~2019-05-04] VITALS: Ht 195.6 cm; Wt 149.0 kg
[2019-05-04 13:37] LABS: BASOPHILS # (AUTO) 0.03 x10^3/uL (0-0.1); BASOPHILS % (AUTO) 0 % (0-1); EOSINOPHILS # (AUTO) 0.03 x10^3/uL (0-0.4); EOSINOPHILS % (AUTO) 0 % (1-7); LYMPHOCYTES # (AUTO) 1.38 x10^3/uL (1-3.4); LYMPHOCYTES % (AUTO) 12 % (22-44); MD NO; MEAN CORPUSCULAR HEMOGLOBIN 29.6 pg (27.5-34.5); MEAN CORPUSCULAR HGB CONC 33.3 g/dL (33.2-36.2); MEAN PLATELET VOLUME 8.5 fL (7.4-10.4); MONOCYTES # (AUTO) 0.46 x10^3/uL (0.2-0.8); MONOCYTES % (AUTO) 4 % (2-9); NEUTROPHILS # (AUTO) 9.65 x10^3/uL (1.8-6.8); NEUTROPHILS % (AUTO) 84 % (42-75); PLATELET COUNT 284 x10^3/uL (130-400); RED BLOOD COUNT 6.29 x10^6/uL (4.38-5.82); RED CELL DISTRIBUTION WIDTH 17.1 % (9.4-14.8)
[2019-05-04 13:49] LABS: ALANINE AMINOTRANSFERASE 67 U/L (12-78); ALBUMIN 4.2 g/dL (3.4-5.0); ANION GAP 5 mmol/L (5-15); CALCIUM 9.5 mg/dL (8.5-10.1); CHLORIDE 102 mmol/L (98-107); CREATININE 1.32 mg/dL (0.7-1.3)
[2019-05-04] MEDS ORDERED: PROP20TA PO (13:50)
[2019-05-04] MEDS ORDERED: DULO60CA7 PO (13:51)
[2019-05-04 13:53] LABS: ALKALINE PHOSPHATASE 70 U/L (45-117); BILIRUBIN,TOTAL 0.8 mg/dL (0.2-1.0); TROPONIN I < 0.015 ng/mL (0.000-0.045)
[2019-05-04] MEDS ORDERED: LEVO150T5 PO (13:53)
[2019-05-04] MEDS ORDERED: testosterone (13:53)
[2019-05-04] MEDS ORDERED: PRED20TA PO (13:54)
--- NOTE | 2019-05-04 13:54 | NUR ---
Assumed care of patient from SHEA Mascorro. at bedside. secured entrance monitor on. vs stable. will continue to monitor.
[2019-05-04] MEDS ORDERED: MORPHINE SULFATE 4 MG/ML, 1ML ONE (14:03)
--- NOTE | 2019-05-04 14:10 | NUR ---
PT SET UP FOR CARDIOVERSION.
[2019-05-04] MEDS ORDERED: ETOMIDATE 20 MG/10 ML ONE (14:20)
[2019-05-04] MEDS ORDERED: FENTANYL PF 100 MCG/2ML ONE (14:30)
[2019-05-04] MEDS ORDERED: MORPHINE SULFATE 4 MG/ML, 1ML IVPush ONE (14:30)
[2019-05-04] MEDS ORDERED: DILTIAZEM 5 MG/ML, 5ML IVPush ONE (14:30)
--- NOTE | 2019-05-04 14:44 | NUR ---
CARDIOVERSION NOW DOWN. AT BEDSIDE. PT TALKING WITH WITH . VS STABLE. PT IS IN NSR AT THIS TIME. CALL LIGHT IN PLACE. WILL CONTINUE TO MONITOR.
[2019-05-04] MEDS ORDERED: FENTANYL PF 100 MCG/2ML IVPush ONE (15:00)
[2019-05-04] MEDS ORDERED: ETOMIDATE 20 MG/10 ML IVPush ONE (15:00)
--- NOTE | 2019-05-04 15:09 | NUR ---
pt drinking water and visiting with . vs stable. no acute distress noted. pediatric anesthesiologist on. nsr noted. will continue to monitor.
--- NOTE | 2019-05-04 15:30 | NUR ---
PT REPORTS HE IS READY FOR DISCHARGE. PT IS A&O X4. PT WAS ABLE TO GET SELF DRESSED BY HIMSELF. PT IS ABLE TO SAFELY AMBULATE AROUND ROOM AND DOZIER. PT HAS A RIDE HOME FROM HIS . PT REPORTS HE IS READY FOR DISCHARGED. PT DISCHARGED BY DR ARREOLA.
[2019-05-04 15:51] VITALS: BP 123/94
== END 2019-05-04 15:56 | disposition home or self-care (01) ==
LOC: ED 15:30
DX: I48.20 Chronic atrial fibrillation, unspecified (principal); R00.0 Tachycardia, unspecified; J44.9 Chronic obstructive pulmonary disease, unspecified; E03.9 Hypothyroidism, unspecified
CPT/HCPCS: 36415; 71045; 80053; 83880; 84484; 85025; 92960; 93005; 96374; 96375; 99285; J2270; J3010

== ENCOUNTER 2019-05-23 10:48 | Emergency (ER) | payer BC ==
[~2019-05-23] VITALS: Ht 195.6 cm; Wt 154.2 kg
[~2019-05-23 10:48] MED LIST changes: +DULO60CA7 PO; +LEVO150T5 PO; +PRED20TA PO; +testosterone
[2019-05-23] MEDS ORDERED: SODIUM CHLORIDE FLUSH 10ML SYR IVF ONE (11:30)
[2019-05-23] MEDS ORDERED: MORPHINE SULFATE 4 MG/ML, 1ML ONE ×2 (11:31→11:59)
[2019-05-23] MEDS ORDERED: ONDANSETRON 2MG/ML, 2ML ONE (11:31)
[2019-05-23] MEDS ORDERED: DILTIAZEM 5 MG/ML, 5ML ONE (11:44)
[2019-05-23 11:49] LABS: BASOPHILS # (AUTO) 0.04 x10^3/uL (0-0.1); BASOPHILS % (AUTO) 0 % (0-1); EOSINOPHILS # (AUTO) 0.06 x10^3/uL (0-0.4); EOSINOPHILS % (AUTO) 1 % (1-7); LYMPHOCYTES # (AUTO) 1.35 x10^3/uL (1-3.4); LYMPHOCYTES % (AUTO) 14 % (22-44); MD NO; MEAN CORPUSCULAR HEMOGLOBIN 29.9 pg (27.5-34.5); MEAN CORPUSCULAR HGB CONC 32.9 g/dL (33.2-36.2); MEAN CORPUSCULAR VOLUME 90.7 fL (81-97); MEAN PLATELET VOLUME 7.6 fL (7.4-10.4); MONOCYTES # (AUTO) 0.77 x10^3/uL (0.2-0.8); MONOCYTES % (AUTO) 8 % (2-9); NEUTROPHILS # (AUTO) 7.21 x10^3/uL (1.8-6.8); NEUTROPHILS % (AUTO) 76 % (42-75); PLATELET COUNT 252 x10^3/uL (130-400); RED BLOOD COUNT 5.76 x10^6/uL (4.38-5.82); RED CELL DISTRIBUTION WIDTH 17.3 % (9.4-14.8)
[2019-05-23 11:57] LABS: ALBUMIN 3.7 g/dL (3.4-5.0); ANION GAP 6 mmol/L (5-15); CALCIUM 9.4 mg/dL (8.5-10.1); CHLORIDE 105 mmol/L (98-107)
[2019-05-23] MEDS ORDERED: DILTIAZEM 5 MG/ML, 5ML IVPush ONE (12:00)
[2019-05-23] MEDS ORDERED: MORPHINE SULFATE 4 MG/ML, 1ML IVPush ONE ×2 (12:00→13:00)
[2019-05-23 12:03] LABS: TROPONIN I 0.055 ng/mL (0.000-0.045)
[2019-05-23 12:08] LABS: INTERNATIONAL NORMALIZED RATIO 0.91 (0.93-1.1); PROTHROMBIN TIME 9.6 Seconds (9.6-11.5)
[2019-05-23] MEDS ORDERED: PROPOFOL 10 MG/ML, 20ML ONE (12:18)
--- NOTE | 2019-05-23 12:56 | NUR ---
cardioversion done at [address] side [address] castillo given 190mcg of propofol with 200J of shock pt's heart rhythm became SR vss stable dr laguerre at bed side for made pt breathe well 1240 pt is fully awake all vitral sign became back to base line at bed side for supporting pt edita rn at bed side given report
[2019-05-23] MEDS ORDERED: ONDANSETRON 2MG/ML, 2ML IVPush ONE (13:00)
--- NOTE | 2019-05-23 13:13 | NUR ---
RECEIVED BEDSIDE REPORT AND CARE FROM NICKIE RN. PT AWAKE, A&OX4. FOLLOWS COMMANDS, TALKATIVE AND LAUGHING WITH SPOUSE. VSS. PULSE OX 90-93% RA. SR ON MONITOR, RATE 70-75. DR. ARREOLA AT BEDSIDE DISCUSSING DISCHARGE POC AND MEDICATIONS WITH PT. PT REPORTS 8/10 NECK AND JAW PAIN, DR ARREOLA AWARE, DISCUSSING PAIN WITH PT, NO NEW ORDERS RECEIVED AT THIS TIME. PT AND AGREE TO POC. WILL CONTINUE TO MONITOR. CALL LIGHT IN REACH. FALL PRECAUTIONS IN PLACE. SIDE RAILS UPX2. CONT PULSE OX, BP, MARKET DEVELOPMENT EXECUTIVE AND DE-FIB PADS ALL REMAIN IN PLACE.
[2019-05-23] MEDS ORDERED: ASPI-496 PO (13:26)
[2019-05-23] MEDS ORDERED: ALPR0.5T7 PO (13:26)
--- NOTE | 2019-05-23 13:35 | NUR ---
PT RESTING COMFORTABLY. NSR ON MONITOR, RATE CONTROLLED 65-72. VSS. DENIES ANY CP, SOB, PALPITATIONS. DENIES URGE TO USE RESTROOM. SPOUSE AT BEDSIDE. CALL LIGHT IN REACH. WILL CONTINUE TO MONITOR. AWAITING DISCHARGE RX AND PAPERS FROM ERP. FALL PRECAUTIONS IN PLACE. A&OX4, FOLLOWING COMMANDS.
--- NOTE | 2019-05-23 13:50 | NUR ---
PT PROVIDED WATER AND PUDDING PER REQUEST AND DR. ELBA STOKES, TOLERATING PO WELL, EATING WITHOUT ANY DIFFICULTY. VSS. NSR ON MONITOR. CALL LIGHT IN REACH.
[2019-05-23] MEDS ORDERED: PROPOFOL 10 MG/ML, 20ML IVPush ONE (14:00)
--- NOTE | 2019-05-23 14:05 | NUR ---
IN TO DISCHARGE PT, REVIEWING DISCHARGE MEDICATIONS WITH PT, PT STATES INSURANCE WILL NOT COVER ELIQUIS, DISCUSSED WITH DR. ARREOLA, AWARE, AWAITING NEW RX FROM ER[facility]. NSR ON MONITOR. VSS. TO REMOVE IV AND PT TO GET DRESSED FOR DISCHARGE PER MD. PT DENIES URGE TO URINATE, MD AWARE, PT CLEARED FOR DISCHARGE.
--- NOTE | 2019-05-23 14:15 | NUR ---
NEW RX RECEIVED FOR XARELTO, PT AND SPOUSE GIVEN DISCHARGE INSTRUCTIONS, BOTH VERBALIZED UNDERSTANDING, HANDOUTS AND RX IN HAND. AMBULATED TO CHECKOUT DESK WITH STEADY GAIT WITH SPOUSE. VSS AT DISCHARGE, NSR ON MONITOR. A&XO4. TOLERATING PO WELL. NAD NOTED. PT STABLE AT DISCHARGE.
[2019-05-23 14:17] VITALS: BP 115/71
== END 2019-05-23 14:51 | disposition home or self-care (01) ==
LOC: ED 13:08
DX: I48.0 Paroxysmal atrial fibrillation (principal); J44.9 Chronic obstructive pulmonary disease, unspecified
CPT/HCPCS: 36415; 71045; 80048; 82040; 83880; 84484; 85025; 85610; 85730; 92960; 93005; 96374; 96375; 96376; 99285; J2270; J2704

== ENCOUNTER 2019-05-29 09:43 | Emergency (ER) | payer BC ==
[~2019-05-29] VITALS: Ht 195.6 cm; Wt 153.0 kg
[~2019-05-29 09:43] MED LIST changes: +ASPI-496 PO
--- NOTE | 2019-05-29 10:22 | NUR ---
PT TO ED FROM HOME. C/O AFIB/PALPITATIONS. HR AFIB 120-130S. DENIES CP. C/O SOB, 8/10 NECK PAIN. NO DIZZINESS/SYNCOPE. HERE LAST WEEK, CARDIOVERTED. 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 COMPLIANT W/ MEDS. CALM, COOPERATIVE. SKIN COOL, SLIGHTLY SWEATY. VSS. CALL STANTON IN REACH. PIV EST. AWAITING MD.
[2019-05-29] MEDS ORDERED: PROPOFOL 10 MG/ML, 20ML ONE (10:28)
[2019-05-29] MEDS ORDERED: HYDROCORTISONE 100 MG INJ. IVPush ONE (10:30)
[2019-05-29] MEDS ORDERED: PROPOFOL 10 MG/ML, 20ML IVPush ONE (10:30)
--- NOTE | 2019-05-29 11:00 | NUR ---
PT CARDIOVERTED BY DR KIMBALL. SEE PAPER CHARTING. SR 70S. VSS. BACK TO BASELINE, GIVEN ICE CHIPS PER MD. CALL ROMY.
[2019-05-29] MEDS ORDERED: HYDROCORTISONE 100 MG INJ. ONE (11:01)
[2019-05-29 11:35] VITALS: BP 133/77
== END 2019-05-29 11:37 | disposition home or self-care (01) ==
LOC: ED 11:23
DX: I48.0 Paroxysmal atrial fibrillation (principal); I10 Essential (primary) hypertension; E03.9 Hypothyroidism, unspecified; I51.7 Cardiomegaly
CPT/HCPCS: 92960; 93005; 96374; 99285; J1720

== ENCOUNTER → 2019-06-20 | Outpatient (CLI) | payer BC | END | disposition home or self-care (01) | LOC: CVU 08:32 | PROVIDERS: ATTEND Dentist Oral and Maxillofacial Surgery | DX: I51.7 Cardiomegaly (principal); I48.0 Paroxysmal atrial fibrillation | CPT/HCPCS: 93306 ==

== ENCOUNTER → 2019-07-19 | Outpatient (CLI) | payer BC ==
[~2019-07-19] MED LIST changes: +ALPR0.5T6 PO; +FREM225S SQ; +Hydrocortisone; +KENALOG IM; +METO-93 PO; +MONT10TA11 PO; +RIVA20TA PO; +TAMS-11 PO; +TRIA10.8 INH; +Testosterone IM
== END | disposition home or self-care (01) ==
LOC: CFH 12:45
PROVIDERS: ATTEND Internal Medicine Cardiovascular Disease
DX: R91.8 Other nonspecific abnormal finding of lung field (principal); I48.0 Paroxysmal atrial fibrillation; I10 Essential (primary) hypertension
CPT/HCPCS: 71046; 75572; 82565

== ENCOUNTER 2019-07-21 07:52 | Observation (INO) | payer BC ==
[~2019-07-21] VITALS: Ht 195.6 cm; Wt 159.0 kg
[~2019-07-21 07:52] MED LIST changes: -ALPR0.5T6 PO; -FREM225S SQ; -Hydrocortisone; -KENALOG IM; -METO-93 PO; -MONT10TA11 PO; +OMNIPAQUE 350 MG/ML, 150 ML BOTTLE ONE; -RIVA20TA PO; -TAMS-11 PO; -TRIA10.8 INH; -Testosterone IM
[2019-07-21] MEDS ORDERED: SODIUM CHLORIDE 0.9% 1,000 ML IV SCH ×2 (08:19→08:30)
[2019-07-21] MEDS ORDERED: METO-93 PO (08:40)
[2019-07-21] MEDS ORDERED: KENALOG IM (08:40)
[2019-07-21] MEDS ORDERED: TAMS-11 PO (08:40)
[2019-07-21] MEDS ORDERED: RIVA20TA PO (08:40)
[2019-07-21] MEDS ORDERED: FREM225S SQ (08:40)
[2019-07-21] MEDS ORDERED: TRIA10.8 INH (08:40)
[2019-07-21] MEDS ORDERED: ALPR0.5T6 PO (08:40)
[2019-07-21] MEDS ORDERED: Testosterone IM (08:40)
[2019-07-21] MEDS ORDERED: Hydrocortisone (08:40)
[2019-07-21] MEDS ORDERED: MONT10TA11 PO (08:40)
[2019-07-21] MEDS ORDERED: FENTANYL PF 100 MCG/2ML ONE ×4 (08:42→14:02)
[2019-07-21] MEDS ORDERED: MIDAZOLAM 1 MG/ML, 2ML ONE (08:42)
[2019-07-21 09:18] LABS: BASOPHILS # (AUTO) 0.08 x10^3/uL (0-0.1); BASOPHILS % (AUTO) 1 % (0-1); EOSINOPHILS # (AUTO) 0.12 x10^3/uL (0-0.4); EOSINOPHILS % (AUTO) 2 % (1-7); LYMPHOCYTES # (AUTO) 1.58 x10^3/uL (1-3.4); LYMPHOCYTES % (AUTO) 20 % (22-44); MD NO; MEAN CORPUSCULAR HEMOGLOBIN 30.8 pg (27.5-34.5); MEAN CORPUSCULAR HGB CONC 33.2 g/dL (33.2-36.2); MEAN CORPUSCULAR VOLUME 92.7 fL (81-97); MEAN PLATELET VOLUME 7.9 fL (7.4-10.4); MONOCYTES # (AUTO) 0.73 x10^3/uL (0.2-0.8); MONOCYTES % (AUTO) 9 % (2-9); NEUTROPHILS # (AUTO) 5.61 x10^3/uL (1.8-6.8); NEUTROPHILS % (AUTO) 69 % (42-75); PLATELET COUNT 254 x10^3/uL (130-400); RED BLOOD COUNT 5.47 x10^6/uL (4.38-5.82)
[2019-07-21 09:28] LABS: ANION GAP 6 mmol/L (5-15); CALCIUM 9.1 mg/dL (8.5-10.1); CHLORIDE 107 mmol/L (98-107); CREATININE 1.06 mg/dL (0.7-1.3)
[2019-07-21] MEDS ORDERED: LIDOCAINE 1%, 20ML ONE (09:58)
[2019-07-21] MEDS ORDERED: HYDROCORTISONE 100 MG INJ. ONE ×2 (10:20→13:41)
[2019-07-21] MEDS ORDERED: LIDOCAINE-MPF 2% ,5ML ONE (10:30)
[2019-07-21] MEDS ORDERED: HEPARIN 1,000 UNITS/ML, 10ML ONE ×5 (10:30→12:27)
[2019-07-21] MEDS ORDERED: PROPOFOL 10 MG/ML, 20ML ONE ×2 (10:30→11:09)
[2019-07-21] MEDS ORDERED: EPINEPHRINE 1 MG/ML, 1ML ONE ×2 (10:57→12:28)
[2019-07-21] MEDS ORDERED: DEXAMETHASONE 4 MG/ML, 1ML ONE (11:09)
[2019-07-21] MEDS ORDERED: SUCCINYLCHOLINE 20 MG/ML, 10ML ONE (11:09)
[2019-07-21] MEDS ORDERED: ROCURONIUM 10MG/ML,5ML ONE (11:09)
[2019-07-21] MEDS ORDERED: ONDANSETRON 2MG/ML, 2ML ONE (11:09)
[2019-07-21] MEDS ORDERED: PHENYLEPHRINE 10 MG/ML ONE ×2 (12:28)
[2019-07-21] MEDS ORDERED: SUGAMMADEX 200 MG/2 ML IVPush ONE (12:55)
[2019-07-21] MEDS ORDERED: HYDROmorphone 1 MG/ML, 1ML INJ ONE ×3 (13:28→14:38)
[2019-07-21] MEDS ORDERED: OXYcodone 5 MG/5 ML ORAL.SOL UDC ONE (13:29)
[2019-07-21] MEDS ORDERED: EPHEDRINE 50 MG/ML, 1ML IVPush PRN (13:30)
[2019-07-21] MEDS ORDERED: BACLOFEN 10 MG TABLET PO PRN (13:30)
[2019-07-21] MEDS ORDERED: OXYcodone 5 MG/5 ML ORAL.SOL UDC PO PRN (13:30)
[2019-07-21] MEDS ORDERED: ALBUTEROL SULFATE 2.5 MG/3 ML NPPB PRN (13:30)
[2019-07-21] MEDS ORDERED: hydrALAzine 20 MG/ML, 1ML IV PRN (13:30)
[2019-07-21] MEDS ORDERED: MEPERIDINE/PF 25MG/ML,1ML IVPush PRN (13:30)
[2019-07-21] MEDS ORDERED: ACETAMINOPHEN 325 MG TABLET PO PRN (13:30)
[2019-07-21] MEDS: HYDROCORTISONE 100 MG INJ. IVPush SCH ×2 (13:30→20:36)
[2019-07-21] MEDS ORDERED: LABETALOL 5MG/ML, 20ML IV PRN (13:30)
[2019-07-21] MEDS ORDERED: HYDROCORTISONE PRN (13:30)
[2019-07-21] MEDS ORDERED: ONDANSETRON 2MG/ML, 2ML IV PRN (13:30)
[2019-07-21] MEDS ORDERED: PROMETHAZINE 25 MG/ML, 1ML IV PRN (13:30)
[2019-07-21] MEDS ORDERED: RIVAROXABAN 20 MG TABLET PO ONE (13:36)
[2019-07-21] MEDS: FENTANYL PF 100 MCG/2ML IV PRN ×4 (13:37→14:14)
[2019-07-21] MEDS: HYDROmorphone 2 MG/ML, 1ML IVPush PRN ×6 (13:42→14:49)
[2019-07-21] MEDS ORDERED: MEPERIDINE/PF 25MG/ML,1ML ONE (14:28)
[2019-07-21 20:00] VITALS: BP_SYST 116; BP_SYST 147; BP_DIAS 65; BP_DIAS 71
[2019-07-21] MEDS: RIZATRIPTAN 10MG TABLET PO PRN (20:36)
[2019-07-21] MEDS: HYDROcodone/APAP 10/325 MG TABLET PO PRN (20:36)
[2019-07-22] MEDS: RIZATRIPTAN 10MG TABLET PO PRN ×2 (01:19→06:11)
[2019-07-22 01:20] VITALS: BP 122/77
[2019-07-22] MEDS ORDERED: LEVOTHYROXINE 150 MCG TABLET PO SCH (06:00)
[2019-07-22] MEDS: HYDROCORTISONE 100 MG INJ. IVPush SCH (06:04)
[2019-07-22] MEDS: HYDROcodone/APAP 10/325 MG TABLET PO PRN (06:04)
[2019-07-22] MEDS ORDERED: NITROGLYCERIN 0.4 MG/SPRAY SL PRN (06:30)
[2019-07-22] MEDS ORDERED: NITROGLYCERIN 0.4 MG BOTTLE (25 TABS) SL PRN (06:30)
[2019-07-22 07:17] VITALS: BP 117/77
[2019-07-22] MEDS ORDERED: RIVAROXABAN 20 MG TABLET PO SCH (08:00)
[2019-07-22] MEDS ORDERED: TAMSULOSIN 0.4 MG CAP.ER.24H PO SCH (09:00)
[2019-07-22] MEDS ORDERED: MONTELUKAST 10 MG TABLET PO SCH (09:00)
[2019-07-22] MEDS ORDERED: METOPROLOL SUCCINATE 50 MG TAB.ER.24H PO SCH (09:00)
[2019-07-22] MEDS ORDERED: TEMPLATE NON-FORMULARY MED. (Duloxetine Hcl (Cymbalta**) 60 MG) PO SCH (09:00)
[2019-07-22] MEDS ORDERED: COLCHICINE 0.6 MG CAPSULE PO SCH (09:00)
[2019-07-22] MEDS ORDERED: COLC0.6C3 PO (09:51)
[2019-07-22] MEDS ORDERED: KETOROLAC 30 MG/1 ML IVPush ONE (10:00)
[2019-07-22 12:44] VITALS: BP 169/81
[2019-07-26] MEDS ORDERED: TESTOSTERONE CYPIONATE 200 MG/ML IM SCH (09:00)
[2019-08-11] MEDS ORDERED: [UNRECOGNIZED DRUG - OTHER] SQ SCH (09:00)
== END 2019-07-22 13:37 | disposition home or self-care (01) ==
LOC: CACL 07:52 → ORIP 15:13 → 5SO 15:27
PROVIDERS: ADMIT Internal Medicine Cardiovascular Disease; ATTEND Internal Medicine Cardiovascular Disease
DX: I48.0 Paroxysmal atrial fibrillation (principal); I10 Essential (primary) hypertension; E03.9 Hypothyroidism, unspecified; G47.33 Obstructive sleep apnea (adult) (pediatric); E11.9 Type 2 diabetes mellitus without complications; E27.1 Primary adrenocortical insufficiency; Z68.41 Body mass index [BMI] 40.0-44.9, adult; Z79.01 Long term (current) use of anticoagulants
CPT/HCPCS: 36415; 80048; 85025; 93005; 93306; 93312; 93321; 93325; 96374; 96375; 96376; G0378; J0171; J0330; J1100; J1170; J1644; J1720; J1885; J2175; J2250; J2370; J2405; J2704; J3010; J3490; Q9967; 93613; 93656; 93662; C1732; C1766; C1893; C1894; C1730; C1759

== ENCOUNTER → 2019-11-02 | Outpatient (CLI) | payer BC ==
[~2019-11-02] MED LIST changes: +ALPR0.5T6 PO; +COLC0.6C3 PO; +FREM225S SQ; -HYDR-3059 PO; +HYDR-3246 PO; +HYDR-3590 PO; -HYDR-36 PO; +Hydrocortisone; +KENALOG IM; +METO-93 PO; +MONT10TA11 PO; -OMNIPAQUE 350 MG/ML, 150 ML BOTTLE ONE; +RIVA20TA PO; +TAMS-11 PO; +TRIA10.8 INH; +Testosterone IM
== END | disposition home or self-care (01) ==
LOC: PETCFH 13:16
PROVIDERS: ATTEND Specialist
DX: C43.4 Malignant melanoma of scalp and neck (principal); R91.1 Solitary pulmonary nodule
CPT/HCPCS: 78816; A9552

== ENCOUNTER 2020-01-15 05:27 | Inpatient (IN) | payer BC ==
[~2020-01-15] VITALS: Ht 195.6 cm; Wt 160.4 kg
--- NOTE | 2020-01-15 05:36 | NUR ---
PT WHEELED FROM TRIAGE AT THIS TIME.
--- NOTE | 2020-01-15 05:41 | NUR ---
THIS IS A 49 YO M W/ C/O BILAT LWR ABD PAIN 12/29 BEGINING YESTERDAY. PT REPORTS DIFFICULTY URINATING AND WHEN PT CAN PRODUCE URINE IT IS RUST COLORED. PT REPORTS LAST BM YESTERDAY MORNING. PT REPORTS FREQUENT NAUSEA W/ VOMITING. PT TACHYCARDIC AND TACHYPNEIC, OTHER VS WDL. PT HAS EXTENSIVE MEDICAL HX INCLUDING AFIB AND ADDISONS. PT RESTING ON RepunchRNEY W/ CALL LIGHT IN REACH, RESP EVEN AND UNLABORED, NADN.
[2020-01-15] MEDS ORDERED: MORPHINE SULFATE 4 MG/ML, 1ML ONE ×2 (05:44→07:25)
[2020-01-15] MEDS ORDERED: ONDANSETRON 2MG/ML, 2ML ONE ×2 (05:44→07:39)
[2020-01-15] MEDS: MORPHINE SULFATE 4 MG/ML, 1ML IVPush PRN ×2 (05:59→07:28)
[2020-01-15] MEDS ORDERED: ONDANSETRON 2MG/ML, 2ML IVPush ONE ×2 (06:00→07:30)
[2020-01-15] MEDS ORDERED: SODIUM CHLORIDE 0.9% 1,000ML IVBOLUS ONE ×2 (06:00→07:30)
--- NOTE | 2020-01-15 06:00 | NUR ---
PIV STARTED, LABS DRAWN AND PT MEDICATED PER EMAR. PT RESTING ON GURNEY W/ CALL LIGHT IN REACH. RESP EVEN AND UNLABORED, YUNIEL.
--- NOTE | 2020-01-15 06:01 | NUR ---
PT 90% RA PRIOR TO CANTEEN ATTENDANT. DESAT TO 88% RA AFTER MEDS GIVEN. PLACED ON 2.5L NC W/ DESIRED EFFECT.
--- NOTE | 2020-01-15 06:05 | NUR ---
PT PROVIDED W/ URINAL AND EDUCATED ON NEED FOR SAMPLE.
[2020-01-15 06:27] LABS: BASOPHILS % (AUTO) 0 % (0-1); EOSINOPHILS % (AUTO) 1 % (1-7); LYMPHOCYTES % (AUTO) 11 % (22-44); MEAN CORPUSCULAR HEMOGLOBIN 30.1 pg (27.5-34.5); MEAN CORPUSCULAR HGB CONC 33.3 g/dL (33.2-36.2); MEAN PLATELET VOLUME 7.9 fL (7.4-10.4); MONOCYTES % (AUTO) 8 % (2-9); NEUTROPHILS % (AUTO) 80 % (42-75); PLATELET COUNT 202 x10^3/uL (130-400); RED BLOOD COUNT 5.91 x10^6/uL (4.38-5.82)
[2020-01-15 06:28] LABS: ALBUMIN 3.8 g/dL (3.4-5.0); ANION GAP 5 mmol/L (5-15); CALCIUM 8.7 mg/dL (8.5-10.1); CHLORIDE 101 mmol/L (98-107)
--- NOTE | 2020-01-15 06:30 | NUR ---
PT REEDUCATED ON NEED FOR URINE SAMPLE.
[2020-01-15 06:31] LABS: ALANINE AMINOTRANSFERASE 39 U/L (12-78); ALKALINE PHOSPHATASE 71 U/L (45-117); BILIRUBIN,TOTAL 2.1 mg/dL (0.2-1.0); CREATININE 1.13 mg/dL (0.7-1.3); TOTAL PROTEIN 7.4 g/dL (6.4-8.2)
--- NOTE | 2020-01-15 06:39 | NUR ---
RICK STANLEY UPDATED ON PT MEETING SEPSIS CRITERIA AT THIS TIME. NO NEW ORDERS RECEIVED. PT AWAITING CT AND LAB RESULTS.
[2020-01-15] MEDS ORDERED: OMNIPAQUE 350 MG/ML, 100ML BOTTLE ONE (06:43)
--- NOTE | 2020-01-15 06:46 | NUR ---
URINE COLLECTED AND SENT TO LAB. PT TO CT.
[2020-01-15 06:55] LABS: MICROSCOPIC INDICATED
[2020-01-15 06:57] LABS: MD SCAN
--- NOTE | 2020-01-15 07:00 | NUR ---
REPORT GIVEN TO SHAYY VALDIVIA. [facility] IN REACH, SIDE RAILS UPX2. RESP EVEN AND UNLABORED, YUNIEL. AWAITING CT RESULTS.
--- NOTE | 2020-01-15 07:28 | NUR ---
PT MEDICATED PER MAR FOR PAIN PER REQUEST. VSS AT THIS TIME. CT RESULTS BACK, ERP IN TO UPDATE PT ON POC
[2020-01-15] MEDS ORDERED: SODIUM CHLORIDE FLUSH 10ML SYR IVF ONE (07:30)
[2020-01-15] MEDS ORDERED: METRONIDAZOLE PMX 500MG/100ML 100 ML IV ONE (07:30)
[2020-01-15] MEDS ORDERED: HYDROmorphone 1 MG/ML, 1ML INJ IVPush PRN (07:30)
[2020-01-15] MEDS ORDERED: CEFOTETAN PMX 2GM/50ML 50 ML IVPB ONE (07:30)
--- NOTE | 2020-01-15 07:37 | NUR ---
dr mckeon spoke with dr santillan
[2020-01-15] MEDS ORDERED: METRONIDAZOLE PMX 500MG/100ML 100 ML ONE (07:39)
--- NOTE | 2020-01-15 08:50 | NUR ---
REPORT TO RECIEVING RN
[2020-01-15 09:23] VITALS: BP 128/75
[2020-01-15] MEDS ORDERED: ENOXAPARIN 40 MG/0.4 ML SQ SCH (10:30)
[2020-01-15] MEDS ORDERED: BACLOFEN 10 MG TABLET PO PRN (11:00)
[2020-01-15] MEDS ORDERED: ALBUTEROL HFA 90 MCG/SPRAY INH PRN (11:00)
[2020-01-15] MEDS ORDERED: ENALAPRILAT 1.25 MG/ML, 2ML IVPush PRN (11:30)
[2020-01-15] MEDS ORDERED: morphine SULFATE 10 MG/ML, 1ML IVPush PRN (11:30)
[2020-01-15] MEDS: ACETAMINOPHEN 325 MG TABLET PO PRN (11:42)
[2020-01-15] MEDS: methylPREDNISolone SOD SUCC 40 MG/ML IV SCH ×2 (11:42→23:56)
[2020-01-15] MEDS: SODIUM CHLORIDE 0.9% 1,000 ML IV SCH ×2 (11:43→18:29)
[2020-01-15] MEDS: LEVOTHYROXINE 150 MCG TABLET PO SCH (11:45)
[2020-01-15 11:58] VITALS: BP 123/77
[2020-01-15] MEDS ORDERED: ONDANSETRON 2MG/ML, 2ML IVPush PRN (13:30)
[2020-01-15] MEDS: HYDROcodone/APAP 5/325 TABLET PO PRN ×2 (14:56→18:49)
[2020-01-15] MEDS: METRONIDAZOLE PMX 500MG/100ML 100 ML IV SCH ×2 (14:57→23:55)
[2020-01-15] MEDS: RIZATRIPTAN 10MG TABLET PO PRN (15:48)
[2020-01-15 19:30] VITALS: BP 136/78
[2020-01-15] MEDS ORDERED: CEFOTETAN PMX 1GM/50ML 50 ML IV SCH (20:30)
[2020-01-15] MEDS: ONDANSETRON ODT 4 MG PO PRN (20:51)
[2020-01-15] MEDS ORDERED: TRAZODONE 50MG TABLET PO PRN (21:00)
[2020-01-15] MEDS: ENOXAPARIN 30 MG/0.3 ML SQ SCH (23:55)
[2020-01-16] MEDS: RIZATRIPTAN 10MG TABLET PO PRN ×3 (00:12→20:29)
[2020-01-16 02:10] VITALS: BP 102/73
[2020-01-16] MEDS: SODIUM CHLORIDE 0.9% 1,000 ML IV SCH ×2 (02:15→10:26)
[2020-01-16] MEDS: HYDROcodone/APAP 5/325 TABLET PO PRN ×5 (03:31→20:28)
[2020-01-16] MEDS: LEVOTHYROXINE 150 MCG TABLET PO SCH (05:50)
[2020-01-16 05:53] LABS: BASOPHILS % (AUTO) 0 % (0-1); EOSINOPHILS % (AUTO) 0 % (1-7); LYMPHOCYTES % (AUTO) 4 % (22-44); MEAN CORPUSCULAR HEMOGLOBIN 30.4 pg (27.5-34.5); MEAN CORPUSCULAR HGB CONC 33.8 g/dL (33.2-36.2); MEAN PLATELET VOLUME 8.1 fL (7.4-10.4); MONOCYTES % (AUTO) 3 % (2-9); NEUTROPHILS % (AUTO) 93 % (42-75); PLATELET COUNT 196 x10^3/uL (130-400); RED BLOOD COUNT 5.32 x10^6/uL (4.38-5.82); RED CELL DISTRIBUTION WIDTH 14.8 % (9.4-14.8)
[2020-01-16 06:07] LABS: CHLORIDE 105 mmol/L (98-107)
[2020-01-16] MEDS: ACETAMINOPHEN 325 MG TABLET PO PRN (06:07)
[2020-01-16 06:21] LABS: ANION GAP 6 mmol/L (5-15); CALCIUM 8.4 mg/dL (8.5-10.1); CREATININE 0.96 mg/dL (0.7-1.3)
[2020-01-16 06:22] LABS: MD SCAN
[2020-01-16 06:56] VITALS: BP 146/92
[2020-01-16] MEDS: METRONIDAZOLE PMX 500MG/100ML 100 ML IV SCH ×3 (08:15→23:25)
[2020-01-16] MEDS ORDERED: CEFOTETAN 2 GM in DEXTROSE 5% 50 ML IV SCH (08:30)
[2020-01-16] MEDS ORDERED: RIVAROXABAN 20 MG TABLET PO SCH (09:00)
[2020-01-16] MEDS: MONTELUKAST 10 MG TABLET PO SCH (09:42)
[2020-01-16] MEDS: CEFOTETAN 2 GM in DEXTROSE 5% 50 ML IV SCH ×2 (09:42→20:27)
[2020-01-16] MEDS: TAMSULOSIN 0.4 MG CAP.ER.24H PO SCH (09:42)
[2020-01-16] MEDS: METOPROLOL SUCCINATE 50 MG TAB.ER.24H PO SCH (09:43)
[2020-01-16] MEDS: FLUCONAZOLE 400 MG/200 ML 200 ML IV SCH (10:26)
[2020-01-16] MEDS: CALCIUM CARBONATE 500 MG TAB.CHEW PO PRN ×3 (11:01→20:29)
[2020-01-16] MEDS: methylPREDNISolone SOD SUCC 40 MG/ML IV SCH (11:56)
[2020-01-16] MEDS: ENOXAPARIN 30 MG/0.3 ML SQ SCH (11:56)
[2020-01-16 12:12] VITALS: BP 115/71
[2020-01-16] MEDS: ONDANSETRON ODT 4 MG PO PRN (17:21)
[2020-01-16 18:36] VITALS: BP 127/81
[2020-01-17] MEDS: methylPREDNISolone SOD SUCC 40 MG/ML IV SCH ×3 (00:34→23:28)
[2020-01-17] MEDS: ENOXAPARIN 30 MG/0.3 ML SQ SCH ×3 (00:34→23:28)
[2020-01-17] MEDS ORDERED: PROMETHAZINE 25 MG/ML, 1ML ONE (01:16)
[2020-01-17] MEDS ORDERED: PROMETHAZINE 25 MG/ML, 1ML IM ONE (01:30)
[2020-01-17 02:02] VITALS: BP 132/77
[2020-01-17] MEDS: LEVOTHYROXINE 150 MCG TABLET PO SCH (07:05)
[2020-01-17 07:21] VITALS: BP 154/93
[2020-01-17] MEDS: METRONIDAZOLE PMX 500MG/100ML 100 ML IV SCH ×3 (07:32→23:28)
[2020-01-17 07:52] LABS: ANION GAP 6 mmol/L (5-15); CALCIUM 9.1 mg/dL (8.5-10.1); CHLORIDE 107 mmol/L (98-107)
[2020-01-17 07:53] LABS: BASOPHILS % (AUTO) 0 % (0-1); EOSINOPHILS % (AUTO) 0 % (1-7); LYMPHOCYTES % (AUTO) 5 % (22-44); MEAN CORPUSCULAR HEMOGLOBIN 29.8 pg (27.5-34.5); MEAN CORPUSCULAR HGB CONC 32.8 g/dL (33.2-36.2); MEAN PLATELET VOLUME 7.8 fL (7.4-10.4); MONOCYTES % (AUTO) 3 % (2-9); NEUTROPHILS % (AUTO) 92 % (42-75); PLATELET COUNT 276 x10^3/uL (130-400); RED BLOOD COUNT 5.47 x10^6/uL (4.38-5.82); RED CELL DISTRIBUTION WIDTH 14.8 % (9.4-14.8)
[2020-01-17 08:53] LABS: MD SCAN
[2020-01-17] MEDS: CEFOTETAN 2 GM in DEXTROSE 5% 50 ML IV SCH ×2 (09:42→21:17)
[2020-01-17] MEDS: TAMSULOSIN 0.4 MG CAP.ER.24H PO SCH (09:42)
[2020-01-17] MEDS: METOPROLOL SUCCINATE 50 MG TAB.ER.24H PO SCH (09:42)
[2020-01-17] MEDS: MONTELUKAST 10 MG TABLET PO SCH (09:42)
[2020-01-17] MEDS: RIZATRIPTAN 10MG TABLET PO PRN ×2 (09:43→18:25)
[2020-01-17] MEDS: HYDROcodone/APAP 5/325 TABLET PO PRN ×3 (09:56→21:18)
[2020-01-17] MEDS: FLUCONAZOLE 400 MG/200 ML 200 ML IV SCH (10:38)
[2020-01-17] MEDS: CALCIUM CARBONATE 500 MG TAB.CHEW PO PRN (10:44)
[2020-01-17 17:02] VITALS: BP 132/85
[2020-01-17 19:27] VITALS: BP 151/98
[2020-01-18 00:07] VITALS: BP 129/84
[2020-01-18] MEDS: HYDROcodone/APAP 5/325 TABLET PO PRN ×2 (03:34→09:41)
[2020-01-18 04:52] LABS: BASOPHILS % (AUTO) 0 % (0-1); EOSINOPHILS % (AUTO) 0 % (1-7); LYMPHOCYTES % (AUTO) 8 % (22-44); MEAN CORPUSCULAR HGB CONC 33.3 g/dL (33.2-36.2); MEAN PLATELET VOLUME 8.1 fL (7.4-10.4); MONOCYTES % (AUTO) 3 % (2-9); NEUTROPHILS % (AUTO) 89 % (42-75); PLATELET COUNT 275 x10^3/uL (130-400); RED BLOOD COUNT 5.33 x10^6/uL (4.38-5.82); RED CELL DISTRIBUTION WIDTH 15.2 % (9.4-14.8)
[2020-01-18 04:57] LABS: MD NO
[2020-01-18] MEDS: LEVOTHYROXINE 150 MCG TABLET PO SCH (05:58)
[2020-01-18 06:03] VITALS: BP 139/84
[2020-01-18] MEDS: METRONIDAZOLE PMX 500MG/100ML 100 ML IV SCH (07:56)
[2020-01-18] MEDS: TAMSULOSIN 0.4 MG CAP.ER.24H PO SCH (09:00)
[2020-01-18] MEDS: METOPROLOL SUCCINATE 50 MG TAB.ER.24H PO SCH (09:26)
[2020-01-18] MEDS: MONTELUKAST 10 MG TABLET PO SCH (09:26)
[2020-01-18] MEDS ORDERED: AMOX1TAB12 PO (10:46)
[2020-01-18] MEDS ORDERED: METH4TAB PO (10:46)
[2020-01-18] MEDS: methylPREDNISolone SOD SUCC 40 MG/ML IV SCH (12:23)
[2020-01-18] MEDS: ENOXAPARIN 30 MG/0.3 ML SQ SCH (12:28)
[2020-01-18] MEDS ORDERED: FLU VACC QS2020-21(6MOS UP)/PF 60MCG/0.5 ML SYR IM-VACC ONE (13:30)
[2020-01-18 15:31] VITALS: BP 150/99
[2020-01-18] MEDS ORDERED: AMOXICILLIN/CLAV 875-125MG TABLET PO SCH (21:00)
== END 2020-01-18 16:30 | disposition home or self-care (01) | DRG 872 ==
LOC: ED 06:38 → EDIP 07:28 → 4WST 09:14 → 3N 01-17 12:20 → DCLOUNGE 01-18 15:56
PROVIDERS: ADMIT Internal Medicine; ATTEND Family Medicine
DX: A41.9 Sepsis, unspecified organism (principal); I48.92 Unspecified atrial flutter; E27.1 Primary adrenocortical insufficiency; Z68.41 Body mass index [BMI] 40.0-44.9, adult; K57.20 Diverticulitis of large intestine with perforation and abscess without bleeding; E03.9 Hypothyroidism, unspecified; C43.9 Malignant melanoma of skin, unspecified; I11.0 Hypertensive heart disease with heart failure; I48.0 Paroxysmal atrial fibrillation; G47.33 Obstructive sleep apnea (adult) (pediatric); E66.01 Morbid (severe) obesity due to excess calories; I50.9 Heart failure, unspecified; J44.9 Chronic obstructive pulmonary disease, unspecified; R09.02 Hypoxemia; K52.9 Noninfective gastroenteritis and colitis, unspecified; K59.00 Constipation, unspecified; Z20.828 Contact with and (suspected) exposure to other viral communicable diseases; Z87.891 Personal history of nicotine dependence; Z85.820 Personal history of malignant melanoma of skin; Z86.006 Personal history of melanoma in-situ; Z83.3 Family history of diabetes mellitus; Z84.89 Family history of other specified conditions; Z88.1 Allergy status to other antibiotic agents; Z91.030 Bee allergy status
CPT/HCPCS: 36415; 74177; 80048; 80053; 81001; 83605; 83690; 84145; 85025; 87040; 87086; 87635; 90686; 93005; 99285; G0378; J1450; J1650; J2405; J2550; Q0162; Q9967; J2270; J2920; J7030

== ENCOUNTER → 2020-01-29 | Outpatient (CLI) | payer BC ==
[~2020-01-29] MED LIST changes: +METH4TAB PO; +OMNIPAQUE 350 MG/ML, 100ML BOTTLE ONE
== END | disposition home or self-care (01) ==
LOC: CFH 13:58
PROVIDERS: ATTEND Nurse Practitioner
DX: N28.1 Cyst of kidney, acquired (principal); N28.89 Other specified disorders of kidney and ureter
CPT/HCPCS: 74177; Q9967

== ENCOUNTER 2020-02-23 09:23 | Emergency (ER) | payer BC ==
[~2020-02-23] VITALS: Ht 195.6 cm; Wt 155.9 kg
[~2020-02-23 09:23] MED LIST changes: -MONT10TA11 PO; +MONT10TA96 PO; -OMNIPAQUE 350 MG/ML, 100ML BOTTLE ONE
[2020-02-23] MEDS ORDERED: DILTIAZEM 5 MG/ML, 5ML IVPush ONE (10:00)
--- NOTE | 2020-02-23 10:02 | NUR ---
THIS IS A 49 YEAR OLD MALE WHO STATES HE STARTED HAVING A FIB LAST NIGHT, PT DOES NOT TAKE ANTICOAGULATION. PT HAS A HX OF STAGE 4 MELANOMA, FIB/FLUTTER, HYPOTHYROID SHELBIE'S DZ, ANXIETY, BRUSITIS BILAT SHOULDERS, DIVERTICULITIS, HYPOPITUITARY. PT PLACED ON HALL TENDER A FIB, CONTINOUS S02 AND CYCLE VS.
[2020-02-23] MEDS ORDERED: DILTIAZEM 5 MG/ML, 5ML ONE (10:06)
[2020-02-23] MEDS ORDERED: LORazepam 2 MG/ML, 1ML ONE (10:21)
[2020-02-23] MEDS ORDERED: LORazepam 2 MG/ML, 1ML IVPush ONE (10:30)
--- NOTE | 2020-02-23 10:37 | NUR ---
PT CONTINOUS TO BE IN AFIB
[2020-02-23] MEDS ORDERED: RIVAROXABAN 20 MG TABLET PO ONE (11:00)
[2020-02-23] MEDS ORDERED: RIVAROXABAN 20 MG TABLET ONE (11:13)
--- NOTE | 2020-02-23 11:18 | NUR ---
break rn- pt resting in bed, medication administered as ordered
[2020-02-23 11:20] LABS: BASOPHILS % (AUTO) 1 % (0-1); EOSINOPHILS % (AUTO) 1 % (1-7); LYMPHOCYTES % (AUTO) 14 % (22-44); MEAN CORPUSCULAR HEMOGLOBIN 30.5 pg (27.5-34.5); MEAN CORPUSCULAR HGB CONC 33.1 g/dL (33.2-36.2); MEAN PLATELET VOLUME 7.9 fL (7.4-10.4); MONOCYTES % (AUTO) 10 % (2-9); NEUTROPHILS % (AUTO) 74 % (42-75); PLATELET COUNT 243 x10^3/uL (130-400); RED BLOOD COUNT 5.89 x10^6/uL (4.38-5.82); RED CELL DISTRIBUTION WIDTH 16.4 % (9.4-14.8)
[2020-02-23 11:23] LABS: MD NO
[2020-02-23 11:29] LABS: CREATININE 1.19 mg/dL (0.7-1.3)
[2020-02-23 11:48] LABS: ANION GAP 4 mmol/L (5-15); CHLORIDE 107 mmol/L (98-107)
--- NOTE | 2020-02-23 11:48 | NUR ---
BEDSIDE REPORT RECEIVED FROM SHEA WARE FOR TRANSFER OF PATIENT CARE.
[2020-02-23] MEDS ORDERED: ETOMIDATE 20 MG/10 ML ONE (11:54)
[2020-02-23] MEDS ORDERED: ETOMIDATE 20 MG/10 ML IVPush ONE (12:00)
[2020-02-23] MEDS ORDERED: HYDROCORTISONE 100 MG INJ. ONE (12:11)
[2020-02-23] MEDS ORDERED: PROPOFOL 10 MG/ML, 20ML ONE (12:25)
[2020-02-23] MEDS ORDERED: HYDROCORTISONE 100 MG INJ. IVPush ONE (12:30)
--- NOTE | 2020-02-23 12:47 | NUR ---
PATIENT GIVEN A TOTAL OF 10 MG ETOMIDATE AND 140 MG PROPOFOL, 120 JOULES APPLIED FOR CARDIOVERSION. PATIENT CONVERTED TO SR WITH HR IN THE 60'S. PATIENT TOLERATED PROCEDURE WELL, NO SIGNS OF RESPIRATORY DISTRESS. CONNECTED TO PADS AND ROOMS DIRECTOR, WILL CONTINUE TO MONITOR FOR S/S OF DISTRESS.
--- NOTE | 2020-02-23 13:06 | NUR ---
PATIENT MORE ALERT, NO SIGNS OF ACUTE DISTRESS, CONNECTED TO PADS AND FLOOR ATTENDANT, WILL CONTINUE TO MONITOR.
--- NOTE | 2020-02-23 13:18 | NUR ---
PATIENT AWAKE AND ALERT, ABLE TO HAVE CONVERSATION WITH THIS RN. NO SIGNS OF ACUTE DISTRESS, DENIES PAIN, CONNECTED TO DIALYSIS TECHNICIAN, CALL LIGHT WITHIN REACH.
--- NOTE | 2020-02-23 13:32 | NUR ---
PATIENT REMOVED ALL MONITORING EQUIPMENT, IS DRESSED AND SITTING AT EDGE OF THE BED.
[2020-02-23 14:01] VITALS: BP 106/65
--- NOTE | 2020-02-23 14:02 | NUR ---
Patient stable, back to baseline, A&O x4, ERMD discussed POC. Patient given discharge instructions and prescription and they have confirmed that they understand the instructions. Patient stable and ambulatory with steady gait from ED to private vehicle with driving.
== END 2020-02-23 14:03 | disposition home or self-care (01) ==
LOC: ED 13:57
DX: I48.0 Paroxysmal atrial fibrillation (principal); R00.2 Palpitations
CPT/HCPCS: 36415; 80048; 85025; 92960; 93005; 96374; 96375; 99152; 99285; J1720; J2060

== ENCOUNTER 2020-07-05 14:08 | Outpatient (CLI) | payer BC, MEDICARE ==
[~2020-07-05 14:08] MED LIST changes: -ALPR0.5T6 PO; +ALPR0.5T93 PO; -HYDR-3246 PO; +HYDR-3248 PO; +MONT10TA17 PO; -MONT10TA96 PO; -OXYC-307 PO; +OXYC-380 PO
== END 2020-07-05 23:59 | disposition home or self-care (01) ==
LOC: CFH 14:08
PROVIDERS: ATTEND Surgery
DX: M79.606 Pain in leg, unspecified (principal)
CPT/HCPCS: 93970

== ENCOUNTER 2020-12-06 07:12 | Outpatient (CLI) | payer BC, MEDICARE ==
[~2020-12-06 07:12] MED LIST changes: -OXYC-380 PO; +OXYC-501 PO
[2020-12-06] MEDS ORDERED: LOSA50TA14 PO (08:25)
[2020-12-06] MEDS ORDERED: HYDR20TA24 PO (08:25)
[2020-12-06] MEDS ORDERED: SOTA80TA PO (08:25)
[2020-12-06] MEDS ORDERED: FLUO10TA PO (08:25)
[2020-12-06] MEDS ORDERED: TIZA4TAB2 PO (08:25)
[2020-12-06 08:43] LABS: ALBUMIN 4.2 g/dL (3.4-5.0); ANION GAP 5 mmol/L (5-15); CALCIUM 9.2 mg/dL (8.5-10.1); CHLORIDE 104 mmol/L (98-107)
[2020-12-06 08:46] LABS: ALANINE AMINOTRANSFERASE 72 U/L (12-78); ALKALINE PHOSPHATASE 70 U/L (45-117); BILIRUBIN,TOTAL 0.9 mg/dL (0.2-1.0); CREATININE 0.95 mg/dL (0.7-1.3)
[2020-12-06 08:50] LABS: BASOPHILS % (AUTO) 1 % (0-1); EOSINOPHILS % (AUTO) 4 % (1-7); LYMPHOCYTES % (AUTO) 20 % (22-44); MEAN CORPUSCULAR HEMOGLOBIN 31.6 pg (27.5-34.5); MEAN CORPUSCULAR HGB CONC 34.7 g/dL (33.2-36.2); MEAN PLATELET VOLUME 7.6 fL (7.4-10.4); MONOCYTES % (AUTO) 10 % (2-9); NEUTROPHILS % (AUTO) 66 % (42-75); PLATELET COUNT 221 x10^3/uL (130-400); RED BLOOD COUNT 5.52 x10^6/uL (4.38-5.82); RED CELL DISTRIBUTION WIDTH 15.1 % (9.4-14.8)
== END 2020-12-06 23:59 | disposition home or self-care (01) ==
LOC: STAR 07:12
PROVIDERS: ATTEND Surgery
DX: Z01.812 Encounter for preprocedural laboratory examination (principal); Z20.822 Contact with and (suspected) exposure to COVID-19; Z93.2 Ileostomy status
CPT/HCPCS: 36415; 80053; 85025; 87635; 93005